=== PATIENT | female | born 1970 | race Caucasian/White ===

== ENCOUNTER 2019-01-13 20:46 | Emergency (ER) | payer OTHER ==
[~2019-01-13] VITALS: Wt 80.1 kg
[~2019-01-13 20:46] MED LIST: CODE118S PO
[2019-01-13] MEDS ORDERED: KETOROLAC 30 MG INJ IV STA (21:54)
[2019-01-13] MEDS ORDERED: METOCLOPRAMIDE 10 MG INJ IV ONE (22:00)
[2019-01-13] MEDS ORDERED: SOD CHLORIDE 0.9% 500 ML IV ONE (22:00)
[2019-01-13] MEDS ORDERED: DIPHENHYDRAMINE 50 MG INJ IV ONE (22:00)
[2019-01-13] MEDS ORDERED: BUTA1CAP38 PO (23:13)
[2019-01-13] MEDS ORDERED: METO10TA92 PO (23:13)
[2019-01-13] MEDS ORDERED: NAPR-985 PO (23:13)
[2019-01-13] MEDS ORDERED: DEXAMETHASONE 10 MG/ML 1 ML INJ IM ONE (23:30)
[2019-01-13] MEDS ORDERED: HYDROCODONE/APAP (5/325) TAB PO ONE (23:30)
[2019-01-13 23:42] VITALS: BP 110/54; PULSE 86; RESP 18
--- NOTE | 2019-01-14 03:51 | ERD ---
ER Documentation Chief Complaint Chief Complaint headache x 1 week HPI History of Present Illness: 48-year-old female who denies past medical history coming in today with complaint of headache that has been persistent since 12/22/2018. Patient reports headache has worsened over the past 1 week. Associated symptoms includes photophobia and phonophobia and nausea. Patient with 30 over her face to block light. Patient reports that she had a tummy tuck on 12/22/2018 in which she had to have a blood transfusion afterwards due to loss of blood. Hemoglobin was below 7.0. Associated symptoms include weakness. Patient reports she still has a drain from her tummy tuck due to complications. At home pharmacological/nonpharmacological treatment for symptoms: Denies Denies social concerns; Denies recent foreign travel ROS All systems reviewed and are negative except as per history of present illness. Medications Home Meds Active Scripts Naproxen* (Naprosyn*) 500 Mg Tablet, 500 MG PO BID PRN for PAIN AND/OR INFLAMMATION, #30 TAB Prov:TANNA CHEW NP 01/13/19 Yvldwyejuz-Kffcnemzebdhd-Fzmebuvf* (Fioricet*) 50-300-40 Mg Capsule, 1 CAP PO Q4H PRN for MIGRAINE, #10 CAP Prov:TANNA CHEW [employer] 01/13/19 Metoclopramide* (Reglan*) 10 Mg Tablet, 10 MG PO Q6 PRN for NAUSEA AND/OR VOMITING, #10 TAB Prov:TANNA CHEW [employer]IC[employer] 01/13/19 Promethazine w/Codeine (Phenergan w/Codeine Syrup) 5 Ml Syrup, 5 ML PO Q6 PRN for COUGH for 3 Days, ML Prov:ROBERT HARRIS 06/23/15 Allergies Allergies: Coded Allergies: No Known Allergies (Verified Allergy, Unknown, 01/10/12) Uncoded Allergies: NONE (Allergy, 08/05/11) PMhx/Soc History of Surgery: Yes (s/p tummy tuck) Anesthesia Reaction: No Hx Neurological Disorder: Yes (migraines) Hx Respiratory Disorders: No Hx Cardiac Disorders: No Hx Psychiatric Problems: Yes (ANXIETY, DEPRESSION) Hx Miscellaneous Medical Probl: Yes (anemia) Hx Alcohol Use: No Hx Substance Use: No Hx Tobacco Use: No Smoking Status: Never smoker FmHx Family History: diabetes, coronary disease Physical Exam Vitals Vital Signs Date Temp Pulse Resp B/P (MAP) Pulse Ox O2 O2 Flow FiO2 Time Delivery Rate 01/13/19 97.9 86 18 110/54 99 Room Air 23:42 (72) 01/13/19 99.4 102 20 155/70 99 21:02 (98) Physical Exam Const: No acute distress Head: Atraumatic Eyes: Normal Conjunctiva ENT: Normal External Ears, Nose and Mouth. Neck: Full range of motion. No meningismus. Resp: Clear to auscultation bilaterally Cardio: Regular rate and rhythm, no murmurs Abd: Soft, non tender, non distended. Normal bowel sounds. Drain is noted with sanguinous fluid. Skin: No petechiae or rashes Back: No midline or flank tenderness Ext: No cyanosis, or edema Neur: Awake and alert, no slurred speech, no neuro focal deficits, no facial asymmetry Psych: Normal Mood and Affect Result Diagram: 01/13/192 Results 24 hrs Laboratory Tests Test 01/13/19 22:14 White Blood Count 5.9 10^3/ul Red Blood Count 2.78 10^6/ul Hemoglobin 8.6 g/dl Hematocrit 27.3 % Mean Corpuscular Volume 98.2 fl Mean Corpuscular Hemoglobin 30.9 pg Mean Corpuscular Hemoglobin Concent 31.5 g/dl Red Cell Distribution Width 14.7 % Platelet Count 331 10^3/UL Mean Platelet Volume 9.5 fl Immature Granulocytes % 0.700 % Neutrophils % 55.8 % Lymphocytes % 30.0 % Monocytes % 8.4 % Eosinophils % 4.9 % Basophils % 0.2 % Nucleated Red Blood Cells % 0.0 /100WBC Immature Granulocytes # 0.040 10^3/ul Neutrophils # 3.3 10^3/ul Lymphocytes # 1.8 10^3/ul Monocytes # 0.5 10^3/ul Eosinophils # 0.3 10^3/ul Basophils # 0.0 10^3/ul Nucleated Red Blood Cells # 0.0 10^3/ul Current Medications Medications Dose Sig/Elodia Start Time Status Last (Trade) Ordered Route PRN Stop Time Admin Dose Reason Admin Ketorolac 30 mg ONCE STAT 01/13/19 DC 01/13/19 Tromethamine IV 21:54 01/13/19 22:26 (Toradol) 21:56 10 mg ONCE ONCE 01/13/19 DC 01/13/19 Metoclopramid IV 22:00 01/13/19 22:26 e HCl 22:01 (Reglan) 25 mg ONCE ONCE 01/13/19 DC 01/13/19 Diphenhydrami IV 22:00 01/13/19 22:26 ne HCl 22:01 (Benadryl) Sodium 500 ml @ Q1H ONCE 01/13/19 DC 01/13/19 Chloride 500 mls/hr IV 22:00 01/13/19 22:33 22:59 10 mg ONCE ONCE 01/13/19 DC 01/13/19 Dexamethasone IM 23:30 01/13/19 23:15 (Decadron) 23:31 1 tab ONCE ONCE 01/13/19 DC 01/13/19 Acetaminophen PO 23:30 01/13/19 23:34 / 23:31 Hydrocodone Bitart ([place] (5/325)) Procedures/MDM ED course includes a thorough examination and history. Medications: Reglan, Benadryl, ketorolac, IV NS Imaging: -- Labs: Urine , CBC Low suspicion for life-threatening medical emergency. Low suspicion for hematological emergency that requires blood transfusion at this time, patient not actively bleeding severely and vital signs are stable. Otherwise healthy patient presenting with constellation of symptoms likely representing migraine/microcytic anemia as characterized by history, physical exam findings, lab findings. CBC: no e/o of systemic infection or severe anemia, hemoglobin is 8.6 increased from patient's last reported verbal reading. Patient currently taking ferrous sulfate 3 times daily. Patient reassessment: Patient hemodynamically stable. No respiratory distress, otherwise relatively well appearing and nontoxic. Patient denies nausea/vomiting. Pain is decreased to 2/10. Will give IM dexamethasone before discharge for prevention of migraine rebound. Patient does report history of migraines .disposition given. Patient educated on diagnoses, prescriptions, follow-up care, return precautions. Strict return precautions given for worsening condition; questions answered discharge. Disposition for discharge with followup in 2 days with PCP/clinic. Departure Diagnosis: Primary Impression: Migraine Migraine type: unspecified Status migrainosus presence: without status migrainosus Intractability: not intractable Qualified Codes: G43.909 - Migraine, unspecified, not intractable, without status migrainosus Additional Impression: Microcytic anemia Condition: Stable Patient Instructions: Migraines and Cluster Headaches Referrals: [facility] YOU HAVE RECEIVED A MEDICAL SCREENING EXAM AND THE RESULTS INDICATE THAT YOU DO NOT HAVE A CONDITION THAT REQUIRES URGENT TREATMENT IN THE EMERGENCY DEPARTMENT. FURTHER EVALUATION AND TREATMENT OF YOUR CONDITION CAN WAIT UNTIL YOU ARE SEEN IN YOUR DOCTORS OFFICE WITHIN THE NEXT 1-2 DAYS. IT IS YOUR RESPONSIBILITY TO MAKE AN APPOINTMENT FOR FOLOW-UP CARE. IF YOU HAVE A PRIMARY DOCTOR --you should call your primary doctor and schedule an appointment IF YOU DO NOT HAVE A PRIMARY DOCTOR YOU CAN CALL OUR PHYSICIAN REFERRAL HOTLINE AT IF YOU CAN NOT AFFORD TO SEE A PHYSICIAN YOU CAN CHOSE FROM THE FOLLOWING [facility] [address] [facility]. [facility] [address] [facility]. [facility] [address] [facility] [facility] [address] [facility] [facility] [address] [facility]. [facility] [address] [facility]. [facility] YOU HAVE RECEIVED A MEDICAL SCREENING EXAM AND THE RESULTS INDICATE THAT YOU DO NOT HAVE A CONDITION THAT REQUIRES URGENT TREATMENT IN THE EMERGENCY DEPARTMENT. FURTHER EVALUATION AND TREATMENT OF YOUR CONDITION CAN WAIT UNTIL YOU ARE SEEN IN YOUR DOCTORS OFFICE WITHIN THE NEXT 1-2 DAYS. IT IS YOUR RESPONSIBILITY TO MAKE AN APPOINTMENT FOR FOLOW-UP CARE. IF YOU HAVE A PRIMARY DOCTOR --you should call your primary doctor and schedule and appointment IF YOU DO NOT HAVE A PRIMARY DOCTOR YOU CAN CALL OUR PHYSICIAN REFERRAL HOTLINE AT . IF YOU CAN NOT AFFORD TO SEE A PHYSICIAN YOU CAN CHOSE FROM THE FOLLOWING [facility] INSTITUTIONS[facility] [address] [place] [address] [facility] [address] [place] [address] [facility] [address] [place] [address] Additional Instructions: Thank you very much for allowing us to participate in your care. Your health and safety is our top priority at [facility]. It is important to read all discharge instructions and education provided in your discharge packet. *Your hemoglobin is 8.6 today; no transfusion is indicated at this time; continue with iron supplements as prescribed.* Call your primary care doctor TOMORROW for an appointment during the next 2-4 days and bring all the information and medications prescribed. Have prescriptions filled and follow precisely the directions on the label. If the symptoms get worse and your provider is unavailable, return to the Emergency Department immediately. TANNA CHEW NP January 14, 2019 03:47
== END 2019-01-13 23:43 | disposition home or self-care (01) ==
LOC: FTE 20:46
DX: G43.909 Migraine, unspecified, not intractable, without status migrainosus (principal); D50.9 Iron deficiency anemia, unspecified
CPT/HCPCS: 36415; 85025; 96361; 96372; 96374; 96375; J1100; J1200; J1885; J2765; J7040; Z7502; Z7610